=== PATIENT | female | born 1960 | race Caucasian/White ===

== ENCOUNTER 2021-08-10 09:14 | Outpatient (CLI) | payer BC | END 2021-08-10 09:15 | disposition home or self-care (01) | LOC: BICMAMMO 09:14 | PROVIDERS: ATTEND Family Medicine | DX: Z12.31 Encounter for screening mammogram for malignant neoplasm of breast (principal) | CPT/HCPCS: 77063; 77067 ==

== ENCOUNTER 2022-10-17 08:49 | Outpatient (CLI) | payer BC | END 2022-10-17 08:50 | disposition home or self-care (01) | LOC: BICMAMMO 08:49 | PROVIDERS: ATTEND Family Medicine | DX: Z12.31 Encounter for screening mammogram for malignant neoplasm of breast (principal); Z80.3 Family history of malignant neoplasm of breast | CPT/HCPCS: 77063; 77067 ==

== ENCOUNTER 2023-12-30 20:32 | Observation (INO) | payer MEDICARE ==
[~2023-12-30 20:32] MED LIST: Iopamidol-370 76% 500 ML MDV (1 ML CHARGE) ONE
[2023-12-30 21:34] LABS: #Basophils 0.03 10x3/uL (0.0-0.2); %Basophils 0.2 % (0.0-1.0); %Eosinophils 0.9 % (0.0-10.0); %Lymphocytes 13.5 % (21.0-51.0); %Monocytes 6.8 % (0.0-10.0); %Neutrophils 77.8 % (42.0-75.0); Hematocrit 34.3 % (36.0-47.0); Hemoglobin 11.7 g/dL (12.0-16.0); Mean Corpuscular HGB CONC 34.1 g/dL (32.0-36.0); Mean Corpuscular Hemoglobin 30.6 pg (27.0-31.0); Mean Corpuscular Volume 89.8 fL (78.0-98.0); Mean Platelet Volume 9.1 fL (7.4-10.4); Platelet Count 380 10x3/uL (130-400); Red Blood Cell (RBC) Count 3.82 mill/uL (4.20-5.40)
[2023-12-30 21:52] LABS: ALT (SGPT) 20 U/L (8-55); AST (SGOT) 32 U/L (5-34); Albumin 2.6 g/dL (3.4-4.8); Alkaline Phosphatase 152 U/L (40-110); Anion Gap 17 mmol/L (10-20); BUN (Urea Nitrogen) 14 mg/dL (9.8-20.1); Bilirubin, Total 0.5 mg/dL (0.2-1.2); Calc. Creatinine Clearance 0 mL/min (70-130); Calcium 9.1 mg/dL (7.8-10.44); Carbon Dioxide 25 mmol/L (23-31); Chloride 96 mmol/L (98-107); Estimated GFR 64; Globulin 4.6 g/dL (2.4-3.5); Glucose 98 mg/dL (80-115); Lipase 17 U/L (8-78); Potassium 3.7 mmol/L (3.5-5.1); Protein, Total 7.2 g/dL (5.8-8.1); Sodium 134 mmol/L (136-145)
[2023-12-30 23:44] LABS: Bacteria/HPF None Seen HPF (None Seen); Bilirubin Negative (Negative); Blood, Urine Trace (Negative); CAUTI Indications for Culture Dysuria,urgency,freq; Clarity Clear (Clear); Glucose, Urine (Dipstick) Normal (Negative); Ketone, Urine Trace mg/dL (Negative); Leukocyte Negative Leu/uL (Negative); Nitrite Negative (Negative); Protein, Urine (Dipstick) Negative (Neg-Trace); RBC/HPF 0-3 HPF (0-3); Squamous Epithelial 0-3 HPF (0-3); Urobilinogen Normal mg/dL (Less than 2); WBC/HPF 0-3 HPF (0-3); pH, Urine 7.5 (5.0-9.0)
[2023-12-30 23:45] LABS: Specific Gravity, Urine 1.044 (1.002-1.036)
[2023-12-30 23:46] LABS: Urine Culture Reflex No No
[2023-12-31] MEDS ORDERED: Sodium Chloride 0.9% 100 ML ONE (00:07)
[2023-12-31] MEDS ORDERED: Piperacillin/Tazobactam 4.5 GM VIAL ONE (00:07)
[2023-12-31] MEDS ORDERED: Famotidine/PF 20 mg/2ml Vial ONE (00:43)
[2023-12-31] MEDS ORDERED: Ipratropium/Albuterol 3 ML NEB NEB PRN (01:40)
[2023-12-31] MEDS ORDERED: Ondansetron PF 4 MG/2 ML Vial IVP PRN (01:40)
[2023-12-31] MEDS ORDERED: Ibuprofen 200 MG TAB PO PRN ×2 (01:42→12:38)
[2023-12-31] MEDS ORDERED: traMADol HCl 50 MG TAB PO PRN (01:42)
[2023-12-31] MEDS: Piperacillin/Tazobactam 3.375 GM in Sodium Chloride 0.9% 100 ML IVPB SCH (03:39)
[2023-12-31] MEDS: Acetaminophen 325 MG TAB PO PRN (03:45)
[2023-12-31 03:48] VITALS: BMI 29.8
[2023-12-31 06:03] LABS: #Basophils Less than 0.03 10x3/uL (0.0-0.2); %Basophils 0.2 % (0.0-1.0); %Eosinophils 0.4 % (0.0-10.0); %Lymphocytes 13.5 % (21.0-51.0); %Monocytes 6.8 % (0.0-10.0); %Neutrophils 78.3 % (42.0-75.0); Hematocrit 30.6 % (36.0-47.0); Hemoglobin 10.5 g/dL (12.0-16.0); Mean Corpuscular HGB CONC 34.3 g/dL (32.0-36.0); Mean Corpuscular Hemoglobin 30.9 pg (27.0-31.0); Mean Platelet Volume 9.1 fL (7.4-10.4); Platelet Count 340 10x3/uL (130-400); RBC Distribution Width 13.1 % (11.5-14.5)
[2023-12-31 06:17] LABS: Anion Gap 14 mmol/L (10-20); BUN (Urea Nitrogen) 10 mg/dL (9.8-20.1); Calc. Creatinine Clearance 98 mL/min (70-130); Calcium 8.2 mg/dL (7.8-10.44); Carbon Dioxide 23 mmol/L (23-31); Chloride 99 mmol/L (98-107); Estimated GFR 87; Glucose 84 mg/dL (80-115); Potassium 3.4 mmol/L (3.5-5.1); Sodium 133 mmol/L (136-145)
[2023-12-31] MEDS: D5 NS w/ 40 mEq KCl 1,000 ML IV SCH (09:25)
[2023-12-31] MEDS: Enoxaparin 40 MG (0.4 mL) SYRINGE SC SCH (09:25)
[2023-12-31 11:48] VITALS: BP 155/81; TEMP 99.7
[2023-12-31 12:10] VITALS: BMI 29.8
[2023-12-31] MEDS: Acetaminophen 500 MG TAB PO SCH (13:04)
[2023-12-31] MEDS: traMADol HCl 50 MG TAB PO PRN (13:05)
[2023-12-31] MEDS ORDERED: Amoxicillin/Potassium Clav 875 MG TAB PO SCH (21:00)
[2024-01-01] MEDS ORDERED: Losartan 25 MG TAB PO SCH (09:00)
[2024-01-01] MEDS ORDERED: Rosuvastatin 5 MG TAB PO SCH (09:00)
[2024-01-01] MEDS ORDERED: Polyethylene Glycol 3350 17 GM Packet PO SCH (09:00)
[2024-01-01] MEDS ORDERED: Magnesium Oxide 400 MG TAB PO SCH (09:00)
[2024-01-01] MEDS ORDERED: Hydrochlorothiazide 25 MG TAB PO SCH (09:00)
== END 2023-12-31 16:18 | disposition home or self-care (01) ==
LOC: ERS 20:32 → SURG B 12-31 01:22
PROVIDERS: ADMIT Specialist; ATTEND Specialist
DX: T81.43XA Infection following a procedure, organ and space surgical site, initial encounter (principal); K65.1 Peritoneal abscess
CPT/HCPCS: 74177; 80048; 80053; 81001; 83605; 83690; 85025 ×2; 87040; 87086; 96372; 96374; 96375 ×2; 99284; G0378 ×2; J1650; J2543 ×2; J3480; J3490; Q9967; 36415

== ENCOUNTER 2024-02-16 12:04 | Outpatient (CLI) | payer MEDICARE | END 2024-02-16 12:05 | disposition home or self-care (01) | LOC: BICMAMMO 12:04 | PROVIDERS: ATTEND Family Medicine | DX: Z12.31 Encounter for screening mammogram for malignant neoplasm of breast (principal) | CPT/HCPCS: 77063; 77067 ==

== ENCOUNTER 2025-03-01 14:00 | Outpatient (CLI) | payer MEDICARE | END 2025-03-01 14:01 | disposition home or self-care (01) | LOC: BICMAMMO 14:00 | PROVIDERS: ATTEND Family Medicine | DX: Z12.31 Encounter for screening mammogram for malignant neoplasm of breast (principal) | CPT/HCPCS: 77063; 77067 ==